=== PATIENT | female | born 1980 | race Caucasian/White ===

== ENCOUNTER 2017-09-04 14:48 | Emergency (ER) | payer BC, OTHER ==
[2017-09-04 15:09] VITALS: BP 127/38; PULSE 100; TEMP 98; BMI 29.2
--- NOTE | 2017-09-04 15:11 | PDOC ---
Rapid Medical Evaluation Time Seen by Provider: 09/04/17 15:05 Medical Evaluation: Allergies Allergy/AdvReac Type Severity Reaction Status Date / Time Penicillins Allergy Severe anaphylaxis Verified 09/04/17 15:05 Sulfa (Sulfonamide Allergy Severe anaphylaxis Verified 09/04/17 15:05 Antibiotics) vancomycin AdvReac Mild Itching Verified 09/04/17 15:05 09/04/17 15:05I have performed a brief in-person evaluation of this patient. The patient presents with a chief complaint of: shoulder pain, after heavy lifting and moving furniture - felt pop/ snap, some relief with ibuprofen Pertinent physical exam findings:tenderpain, mild swelling to shoulder. I have ordered the following: ( tubal ligation) right shoulder xray The patient will proceed to the ED for further evaluation. 09/04/17 15:09
[2017-09-04] MEDS ORDERED: KETOROLAC TROMETHAMINE 60 MG/2 ML VIAL IM ONE (15:25)
[2017-09-04] MEDS ORDERED: RANITIDINE HCL 150 MG TABLET (FP) PO ONE (15:25)
[2017-09-04] MEDS ORDERED: RANITIDINE HCL 150 MG TABLET (FP) ONE (15:30)
[2017-09-04] MEDS ORDERED: KETOROLAC TROMETHAMINE 60 MG/2 ML VIAL ONE (15:30)
--- NOTE | 2017-09-04 15:30 | PDOC ---
History of Present Illness - General Chief Complaint: Injury Stated Complaint: SHOULDER PAIN Time Seen by Provider: 09/04/17 15:05 - History of Present Illness Initial Comments: 37-year-old female without any pre-existing comorbidities presents for evaluation of atraumatic right shoulder pain times one day. She points to the anterior aspect of the right shoulder as the area of her discomfort pain is described as achy exacerbated with motion relieved with rest free of radiation no prior problems with the right shoulder. No associated symptoms. She feels she might of injury her shoulder while she was cleaning. 09/04/17 15:29 Past History - Past Medical History Allergies/Adverse Reactions: Allergies Allergy/AdvReac Type Severity Reaction Status Date / Time Penicillins Allergy Severe anaphylaxis Verified 09/04/17 15:05 Sulfa (Sulfonamide Allergy Severe anaphylaxis Verified 09/04/17 15:05 Antibiotics) vancomycin AdvReac Mild Itching Verified 09/04/17 15:05 Home Medications: Ambulatory Orders NK [No Known Home Medication] 09/04/17 Anemia: No Asthma: No Cancer: No Cardiac Disorders: No CVA: No COPD: No CHF: No Dementia: No Diabetes: No GI Disorders: No Disorders: No HTN: No Hypercholesterolemia: No Liver Disease: No Psychiatric Problems: Yes (ANXIETY, DEPRESSION, BIPOLAR) Seizures: No Thyroid Disease: No - Surgical History Abdominal Surgery: Yes Appendectomy: No Cardiac Surgery: No Cholecystectomy: Yes Lung Surgery: No Neurologic Surgery: No Orthopedic Surgery: No - Immunization History Immunization Up to Date: Yes - Suicide/Smoking/Psychosocial Hx Smoking Status: No Smoking History: Former smoker Have you smoked in the past 12 months: No Number of Cigarettes Smoked Daily: 0 If you are a former smoker, when did you quit?: 2008 Information on smoking cessation initiated: No Hx Alcohol Use: No Drug/Substance Use Hx: No Substance Use Type: None, Prescribed, Tranquilizers Hx Substance Use Treatment: No Review of Systems - Review of Systems Musculoskeletal: Yes: See HPI, Joint Pain All Other Systems: Reviewed and Negative *Physical Exam - Vital Signs Last Vital Signs Temp Pulse Resp BP Pulse Ox 98.0 F 100 H 18 127/38 100 09/04/17 15:06 09/04/17 15:06 09/04/17 15:06 09/04/17 15:06 09/04/17 15:06 - Physical Exam Comments: Right shoulder skin color and temperature within normal limits she resists any passive range of motion she has no palpable effusion. She has diffuse tenderness which seems out of proportion to the examination. She is unable to tolerate impingement maneuvers are rotator cuff strength testing. She has no gross sensorimotor deficits bilateral upper extremity compartments are soft and nontender. She is neurovascularly intact. 09/04/17 15:30 Medical Decision Making - Medical Decision Making Atraumatic right shoulder pain most likely an impingement type syndrome or strain. 09/04/17 15:30 *DC/Admit/Observation/Transfer Diagnosis at time of Disposition: Shoulder strain - Discharge Dispostion Disposition: HOME Condition at time of disposition: Stable Decision to Admit order: No - Referrals Referrals: Rosalina Jackson MD [Primary Care Provider] - Ruben Suarez MD [Staff Physician] - - Patient Instructions Printed Discharge Instructions: Shoulder Sprain Additional Instructions: May take Tylenol and Motrin for your pain follow-up with orthopedics in the next 1-2 days for further evaluation and treatment options. Return to the emergency room if symptoms worsen or go unresolved. Your x-ray today was normal. - Post Discharge Activity
== END 2017-09-04 16:33 | disposition home or self-care (01) ==
LOC: JERFT 14:48
PROC: 3E0233Z Introduction of Anti-inflammatory into Muscle, Percutaneous Approach (ICD-10-PCS; principal; 2017-09-04)
DX: S46.811A Strain of other muscles, fascia and tendons at shoulder and upper arm level, right arm, initial encounter (principal); X50.0XXA Overexertion from strenuous movement or load, initial encounter; Y93.89 Activity, other specified; Y92.89 Other specified places as the place of occurrence of the external cause; Y99.8 Other external cause status
CPT/HCPCS: 73030-TC-RT-FY; 99281-25

== ENCOUNTER 2018-07-06 14:15 | Emergency (ER) | payer BC, OTHER ==
[2018-07-06 14:31] VITALS: BP 122/76; PULSE 106; TEMP 98.6; BMI 29.2
--- NOTE | 2018-07-06 14:42 | PDOC ---
History of Present Illness - General Chief Complaint: Pain, Acute Stated Complaint: PATIENT HERE FOR NECK PAIN OF 9 Time Seen by Provider: 07/06/18 14:39 History Source: Patient Exam Limitations: No Limitations Past History - Travel Traveled outside of the country in the last 30 days: No Close contact w/someone who was outside of country & ill: No - Past Medical History Allergies/Adverse Reactions: Allergies Allergy/AdvReac Type Severity Reaction Status Date / Time Penicillins Allergy Severe anaphylaxis Verified 09/04/17 15:05 Sulfa (Sulfonamide Allergy Severe anaphylaxis Verified 09/04/17 15:05 Antibiotics) vancomycin AdvReac Mild Itching Verified 09/04/17 15:05 Home Medications: Ambulatory Orders Cyclobenzaprine HCl [Flexeril -] 10 mg PO HS #10 tablet 07/06/18 Ketorolac Tromethamine [Toradol] 10 mg PO TID #21 tablet 07/06/18 Lidocaine 5% Patch [Lidoderm -] 1 patch TP DAILY #7 patch 07/06/18 Anemia: No Asthma: No Cancer: No Cardiac Disorders: No CVA: No COPD: No CHF: No Dementia: No Diabetes: No GI Disorders: No Disorders: No HTN: No Hypercholesterolemia: No Liver Disease: No Psychiatric Problems: Yes (ANXIETY, DEPRESSION, BIPOLAR) Seizures: No Thyroid Disease: No - Surgical History Abdominal Surgery: Yes Appendectomy: No Cardiac Surgery: No Cholecystectomy: Yes Lung Surgery: No Neurologic Surgery: No Orthopedic Surgery: No - Immunization History Immunization Up to Date: Yes - Suicide/Smoking/Psychosocial Hx Smoking Status: No Smoking History: Never smoked Have you smoked in the past 12 months: No Number of Cigarettes Smoked Daily: 0 If you are a former smoker, when did you quit?: 2008 Hx Alcohol Use: No Drug/Substance Use Hx: No Substance Use Type: None, Prescribed, Tranquilizers Hx Substance Use Treatment: No Review of Systems - Review of Systems Able to Perform ROS?: Yes Comments:: 07/06/18 14:42 CONSTITUTIONAL: Absent: fever, chills, diaphoresis, generalized weakness, malaise, loss of appetite HEENT: Absent: rhinorrhea, nasal congestion, throat pain, throat swelling, difficulty swallowing, mouth swelling, ear pain, eye pain, visual Changes CARDIOVASCULAR: Absent: chest pain, loss of consciousness, palpitations, irregular heart rate, peripheral edema RESPIRATORY: Absent: cough, shortness of breath, dyspnea with exertion, orthopnea, wheezing, stridor, hemoptysis GASTROINTESTINAL: Absent: abdominal pain, abdominal distension, nausea, vomiting, diarrhea, constipation, melena, hematochezia GENITOURINARY: Absent: dysuria, frequency, urgency, hesitancy, hematuria, flank pain, genital pain MUSCULOSKELETAL: Present: neck pain Absent: joint swelling SKIN: Absent: rash, itching, pallor HEMATOLOGIC/IMMUNOLOGIC: Absent: easy bleeding, easy bruising, lymphadenopathy, frequent infections ENDOCRINE: Absent: unexplained weight gain, unexplained weight loss, heat intolerance, cold intolerance NEUROLOGIC: Absent: headache, focal weakness or paresthesias, dizziness, unsteady gait, seizure, mental status changes, bladder or bowel incontinence PSYCHIATRIC: Absent: anxiety, depression, suicidal or homicidal ideation, hallucinations. Is the patient limited Japanese proficient: No *Physical Exam - Vital Signs Last Vital Signs Temp Pulse Resp BP Pulse Ox 98.6 F 106 H 17 122/76 99 07/06/18 14:22 07/06/18 14:22 07/06/18 14:22 07/06/18 14:22 07/06/18 14:22 - Physical Exam Comments: 07/06/18 14:42 GENERAL: Well developed, well nourished. Awake and alert. No acute distress. HEENT: Normocephalic, atraumatic. PERRLA, EOMI. No conjunctival pallor. Sclera are non- icteric. Moist mucous membranes. Oropharynx is clear. NECK: Supple. Full ROM. No JVD. Carotid pulses 2+ and symmetric, without bruits. No thyromegaly. No lymphadenopathy. CARDIOVASCULAR: Regular rate and rhythm. No murmurs, rubs, or gallops. Distal pulses are 2+ and symmetric. PULMONARY: No evidence of respiratory distress. Lungs clear to auscultation bilaterally. No wheezing, rales or rhonchi. ABDOMINAL: Soft. Non-tender. Non-distended. No rebound or guarding. No organomegaly. Normoactive bowel sounds. MUSCULOSKELETAL Normal range of motion at all joints. No bony deformities or tenderness. No CVA tenderness. EXTREMITIES: No cyanosis. No clubbing. No edema. No calf tenderness. SKIN: Warm and dry. Normal capillary refill. No rashes. No jaundice. NEUROLOGICAL: Alert, awake, appropriate. Cranial nerves 2-12 intact. No deficits to light touch and temperature in face, upper extremities and lower extremities. No motor deficits in the in face, upper extremities and lower extremities. Normoreflexic in the upper and lower extremities. Normal speech. Toes are down- going bilaterally. Gait is normal without ataxia. PSYCHIATRIC: Cooperative. Good eye contact. Appropriate mood and affect. *DC/Admit/Observation/Transfer Diagnosis at time of Disposition: Neck pain - Discharge Dispostion Disposition: HOME Condition at time of disposition: Stable Decision to Admit order: No - Referrals Referrals: Flor Alan MD [Primary Care Provider] - Mahin Radford MD [Staff Physician] - - Patient Instructions Printed Discharge Instructions: DI for Neck Pain Additional Instructions: You have neck pain due to a muscle spasm/hernatied discs. Please take toradol as directed. You were also prescribed Flexeril. Please take this medication every 8 hours for the first day. Then take the medication before you go to bed. Do not drive after taking this medication as it may make you sleepy. You may use warm compresses on your back to help with her symptoms. Please follow-up with your primary care doctor. If your symptoms do not resolve in 3-5 days, follow-up with orthopedics. A referral has been provided for you. Return to the emergency department if you have worsening back pain, bladder or bowel incontinence, numbness and tingling in her legs, changes in the way you walk, or any new or worsening symptoms. You may also cook pickled meat lidocaine 2% patches at the pharmacy over the counter if the 5% patch is not covered by insurance. - Post Discharge Activity Forms/Work/School Notes: Back to Work
[2018-07-06] MEDS ORDERED: LIDOCAINE 5% TOPICAL PATCH TP ONE (15:14)
[2018-07-06] MEDS ORDERED: KETOROLAC TROMETHAMINE 60 MG/2 ML VIAL IM ONE (15:14)
[2018-07-06] MEDS ORDERED: LIDOCAINE 5% TOPICAL PATCH ONE (15:19)
[2018-07-06] MEDS ORDERED: KETOROLAC TROMETHAMINE 60 MG/2 ML VIAL ONE (15:19)
[2018-07-06] MEDS ORDERED: LIDOCAINE PATCH REMOVAL MC SCH (22:00)
== END 2018-07-06 15:40 | disposition home or self-care (01) ==
LOC: JERFT 14:15
PROC: 3E0233Z Introduction of Anti-inflammatory into Muscle, Percutaneous Approach (ICD-10-PCS; principal; 2018-07-06)
DX: M54.2 Cervicalgia (principal)
CPT/HCPCS: 99281-25

== ENCOUNTER 2018-10-26 19:50 | Emergency (ER) | payer BC, OTHER | END 2018-10-26 21:05 | disposition home or self-care (01) | LOC: JERFT 19:50 ==

== ENCOUNTER 2020-12-23 14:06 | Emergency (ER) | payer OTHER, BC ==
[2020-12-23 14:23] VITALS: BP 122/78; PULSE 100; TEMP 98.1; BMI 29.2
[2020-12-23] MEDS ORDERED: KETOROLAC TROMETHAMINE 30 MG/1 ML VIAL IM ONE (14:56)
[2020-12-23] MEDS ORDERED: KETOROLAC TROMETHAMINE 30 MG/1 ML VIAL ONE (14:58)
== END 2020-12-23 15:55 | disposition home or self-care (01) ==
LOC: JERFT 14:06
PROC: 3E0233Z Introduction of Anti-inflammatory into Muscle, Percutaneous Approach (ICD-10-PCS; principal; 2020-12-23)
DX: M25.561 Pain in right knee (principal)
CPT/HCPCS: 73562-TC-RT-FY; 99284-25

== ENCOUNTER 2021-01-06 17:30 | Emergency (ER) | payer OTHER, BC ==
[2021-01-06 17:49] VITALS: BP 125/88; PULSE 78; TEMP 97.8; BMI 29.2
[2021-01-06] MEDS ORDERED: IBUPROFEN 600 MG TABLET (FP) PO ONE ×2 (18:11→18:15)
== END 2021-01-06 18:38 | disposition home or self-care (01) ==
LOC: JERFT 17:30 → JER 17:30 → JERFT 18:38
DX: M79.645 Pain in left finger(s) (principal)
CPT/HCPCS: 73130-TC-LT-FY; 99283-25

== ENCOUNTER 2021-09-03 19:02 | Emergency (ER) | payer BC, OTHER ==
[2021-09-03 19:08] VITALS: BP 134/82; PULSE 111; TEMP 98.8; BMI 29.2
[2021-09-03] MEDS ORDERED: IBUPROFEN 400 MG TABLET (FP) PO ONE ×2 (19:47→20:06)
== END 2021-09-03 20:31 | disposition home or self-care (01) ==
LOC: JER 19:02 → JERFT 19:02
DX: S90.02XA Contusion of left ankle, initial encounter (principal); W23.1XXA Caught, crushed, jammed, or pinched between stationary objects, initial encounter
CPT/HCPCS: 73610-TC-LT-FY; 73630-TC-LT; 99283-25

== ENCOUNTER 2021-09-30 18:00 | Emergency (ER) | payer BC, OTHER ==
[2021-09-30 18:09] VITALS: TEMP 97.5; BMI 28.3
[2021-09-30 20:12] LABS: BASO % 0.9 % (0-2.0); EOS % 3.5 % (0-4.5); HEMATOCRIT 41.6 % (32.4-45.2); HEMOGLOBIN 14.4 GM/dL (10.7-15.3); LYMPH % 18.2 % (8-40); MCH 30.4 pg (25.7-33.7); MCHC 34.5 g/dl (32.0-36.0); MEAN CELL VOLUME 87.9 fl (80-96); MEAN PLT VOLUME 7.3 fl (7.5-11.1); NEUT % 73.4 % (42.8-82.8); PLATELET COUNT 375 10^3/uL (134-434); RBC 4.73 M/mm3 (3.60-5.2); RDW 13.4 % (11.6-15.6)
[2021-09-30 20:45] LABS: ALBUMIN 3.9 g/dl (3.4-5.0); BLOOD UREA NITROGEN 16.7 mg/dL (7-18); CALCIUM 9.1 mg/dL (8.5-10.1)
[2021-09-30 20:48] LABS: CREATININE 0.8 mg/dL (0.55-1.3)
[2021-09-30 20:50] LABS: BILIRUBIN,TOTAL 0.4 mg/dL (0.2-1)
[2021-09-30 23:12] VITALS: BP 137/70; PULSE 99
== END 2021-10-01 00:16 | disposition home or self-care (01) ==
LOC: JER 18:00
DX: R04.2 Hemoptysis (principal)
CPT/HCPCS: 0241U-QW; 36415; 71260-TC; 80053; 84484; 84703; 85025; 99284-25; Q9967

== ENCOUNTER 2021-11-18 16:44 | Emergency (ER) | payer OTHER, BC ==
[2021-11-18 16:52] VITALS: BP 127/86; PULSE 105; RESP 18; TEMP 97.8; BMI 29.2
[2021-11-18] MEDS ORDERED: KETOROLAC TROMETHAMINE 30 MG/1 ML VIAL IM ONE (17:39)
[2021-11-18] MEDS ORDERED: ACETAMINOPHEN 500 MG TABLET (FP) PO ONE (17:44)
[2021-11-18] MEDS ORDERED: ACETAMINOPHEN 500 MG TABLET (FP) ONE (17:45)
== END 2021-11-18 21:08 | disposition home or self-care (01) ==
LOC: JERFT 16:44
PROC: 3E0233Z Introduction of Anti-inflammatory into Muscle, Percutaneous Approach (ICD-10-PCS; principal; 2021-11-18)
DX: G56.22 Lesion of ulnar nerve, left upper limb (principal); S50.02XA Contusion of left elbow, initial encounter
CPT/HCPCS: 73070-TC-LT-FY; 99284-25

== ENCOUNTER 2022-01-08 13:24 | Emergency (ER) | payer BC, OTHER ==
[2022-01-08 13:28] VITALS: BP 117/81; PULSE 113; RESP 18; TEMP 98.2; BMI 30.2
[2022-01-08] MEDS ORDERED: ACETAMINOPHEN 500 MG TABLET (FP) PO ONE (13:52)
[2022-01-08] MEDS ORDERED: ACETAMINOPHEN 500 MG TABLET (FP) ONE (13:54)
== END 2022-01-08 13:59 | disposition home or self-care (01) ==
LOC: JERFT 13:24
PROC: 3E033NZ Introduction of Analgesics, Hypnotics, Sedatives into Peripheral Vein, Percutaneous Approach (ICD-10-PCS; principal; 2022-01-08)
PROC: 3E0337Z Introduction of Electrolytic and Water Balance Substance into Peripheral Vein, Percutaneous Approach (ICD-10-PCS; 2022-01-08)
PROC: 3E033GC Introduction of Other Therapeutic Substance into Peripheral Vein, Percutaneous Approach (ICD-10-PCS; 2022-01-08)
PROC: 3E033GC Introduction of Other Therapeutic Substance into Peripheral Vein, Percutaneous Approach (ICD-10-PCS; 2022-01-08)
PROC: 3E033GC Introduction of Other Therapeutic Substance into Peripheral Vein, Percutaneous Approach (ICD-10-PCS; 2022-01-08)
PROC: 3E0337Z Introduction of Electrolytic and Water Balance Substance into Peripheral Vein, Percutaneous Approach (ICD-10-PCS; 2022-01-08)
DX: S80.12XA Contusion of left lower leg, initial encounter (principal)
CPT/HCPCS: 99284-25; C9803-CS; U0003; U0005

== ENCOUNTER 2022-01-08 19:07 | Emergency (ER) | payer BC, OTHER ==
[2022-01-08 19:16] VITALS: BMI 30.2
[2022-01-08] MEDS ORDERED: ONDANSETRON 4 MG/2 ML VIAL IVPUSH ONE (19:51)
[2022-01-08] MEDS ORDERED: SODIUM CHLORIDE 1,000 ML IV STA ×2 (19:51→23:27)
[2022-01-08] MEDS ORDERED: ONDANSETRON 4 MG/2 ML VIAL ONE (20:04)
[2022-01-08] MEDS ORDERED: METOCLOPRAMIDE HCL INJECTION 10 MG/2 ML VIAL IVPUSH ONE (20:42)
[2022-01-08] MEDS ORDERED: METOCLOPRAMIDE HCL INJECTION 10 MG/2 ML VIAL ONE (20:45)
[2022-01-08 20:48] LABS: BASO % 0.3 % (0-2.0); EOS % 0.4 % (0-4.5); LYMPH % 2.1 % (8-40); MCHC 34.1 g/dl (32.0-36.0); MEAN PLT VOLUME 7.9 fl (7.5-11.1); MONO % 5.3 % (3.8-10.2); NEUT % 91.9 % (42.8-82.8); PLATELET COUNT 210 10^3/uL (134-434); RBC 4.32 M/mm3 (3.60-5.2); RDW 13.3 % (11.6-15.6); WHITE BLOOD COUNT 8.4 K/mm3 (4.0-10.0)
[2022-01-08 21:05] LABS: CHLORIDE 106 mmol/L (98-107); SODIUM 139 mmol/L (136-145)
[2022-01-08 21:06] LABS: ALBUMIN 3.5 g/dl (3.4-5.0); ANION GAP 12 MMOL/L (8-16); BLOOD UREA NITROGEN 14.1 mg/dL (7-18); CALCIUM 8.8 mg/dL (8.5-10.1); CO2 21 mmol/L (21-32); GLUCOSE,RANDOM 99 mg/dL (74-106)
[2022-01-08 21:09] LABS: CREATININE 0.8 mg/dL (0.55-1.3); SGOT/AST 108 U/L (15-37); SGPT/ALT 107 U/L (13-61)
[2022-01-08 21:11] LABS: BILIRUBIN,TOTAL 0.6 mg/dL (0.2-1); LDH 278 U/L (84-246); TOT PROT 6.9 g/dl (6.4-8.2)
[2022-01-08 21:12] LABS: ALK PHOS 82 U/L (45-117)
[2022-01-08] MEDS ORDERED: ACETAMINOPHEN 1000 MG/100 ML BAG IVPB ONE (21:13)
[2022-01-08 21:23] LABS: LIPASE 102 U/L (73-393)
[2022-01-08] MEDS ORDERED: MAGNESIUM SULF 50% (8.12 MEQ/2 ML-1 GM VIAL) IVPB ONE (21:27)
[2022-01-08] MEDS ORDERED: POTASSIUM CHLORIDE TABS 20 MEQ TABLET.ER (FP) PO ONE ×2 (21:28→22:20)
[2022-01-08 21:40] LABS: ANISOCYTOSIS 1+; MACROCYTOSIS 0
[2022-01-08] MEDS ORDERED: ACETAMINOPHEN INJECTION 100 ML IVPB ONE (22:20)
[2022-01-08] MEDS ORDERED: MAGNESIUM SULFATE IN WATER 2 GM/50 ML IVPB IVPB ONE (22:20)
[2022-01-08 22:42] LABS: PH,URINE 7.5 (5.0-8.0); URINE APPEARANCE CLEAR; URINE BILIRUBIN NEGATIVE (NEGATIVE); URINE COLOR YELLOW; URINE GLUCOSE (UA) NEGATIVE (NEGATIVE); URINE KETONE NEGATIVE (NEGATIVE); URINE LEUK ESTERASE NEGATIVE (NEGATIVE); URINE NITRITE NEGATIVE (NEGATIVE); URINE PROTEIN NEGATIVE (NEGATIVE)
[2022-01-08 22:45] LABS: HCG,QUALITATIVE URINE Negative
[2022-01-08] MEDS ORDERED: LORazepam 1 MG TABLET PO ONE (23:32)
[2022-01-08] MEDS ORDERED: LORazepam 1 MG TABLET ONE (23:43)
[2022-01-09 01:08] VITALS: BP 112/73; PULSE 127; RESP 20; TEMP 99.3
== END 2022-01-09 01:09 | disposition home or self-care (01) ==
LOC: JER 19:07
DX: U07.1 COVID-19 (principal); R00.0 Tachycardia, unspecified
CPT/HCPCS: 36415; 71275-TC; 80053; 81003; 83615; 83690; 84484; 84703; 85025; 85379; 87086; 87186; 93005; 93010; 99285-25; Q9967

== ENCOUNTER 2022-04-14 13:18 | Emergency (ER) | payer BC, OTHER ==
[2022-04-14 13:24] VITALS: BP 135/83; PULSE 119; RESP 20; TEMP 98.4; BMI 30.2
[2022-04-14] MEDS ORDERED: ACETAMINOPHEN 500 MG TABLET (FP) PO ONE (13:25)
[2022-04-14] MEDS ORDERED: IBUPROFEN 400 MG TABLET (FP) PO ONE ×2 (13:33→13:48)
[2022-04-14] MEDS ORDERED: ACETAMINOPHEN 500 MG TABLET (FP) ONE (13:48)
== END 2022-04-14 14:56 | disposition home or self-care (01) ==
LOC: JERFT 13:18
DX: M25.511 Pain in right shoulder (principal)
CPT/HCPCS: 71046-TC-FY; 73000-TC-RT-FY; 73030-TC-RT-FY; 99284-25

== ENCOUNTER 2022-06-13 14:32 | Emergency (ER) | payer BC, OTHER ==
[2022-06-13 14:39] VITALS: BP 131/81; PULSE 98; RESP 18; TEMP 97.9; BMI 29.2
[2022-06-13] MEDS ORDERED: ACETAMINOPHEN 500 MG TABLET (FP) PO ONE (15:56)
[2022-06-13] MEDS ORDERED: ACETAMINOPHEN 500 MG TABLET (FP) ONE (16:04)
== END 2022-06-13 17:07 | disposition home or self-care (01) ==
LOC: JERFT 14:32
DX: M79.601 Pain in right arm (principal); W20.8XXA Other cause of strike by thrown, projected or falling object, initial encounter; Y93.D3 Activity, furniture building and finishing
CPT/HCPCS: 73090-TC-RT-FY; 73110-TC-RT-FY; 99283-25

== ENCOUNTER 2022-07-30 12:49 | Emergency (ER) | payer BC, OTHER ==
[2022-07-30 12:53] VITALS: BP 137/82; PULSE 101; RESP 18; TEMP 98.3; BMI 30.2
[2022-07-30] MEDS ORDERED: NAPROXEN 500 MG TABLET PO ONE (13:30)
[2022-07-30] MEDS ORDERED: NAPROXEN 500 MG TABLET ONE (13:32)
== END 2022-07-30 14:23 | disposition home or self-care (01) ==
LOC: JERFT 12:49 → JER 12:49 → JERFT 14:23
DX: M54.50 Low back pain, unspecified (principal); M25.551 Pain in right hip; W10.8XXA Fall (on) (from) other stairs and steps, initial encounter
CPT/HCPCS: 72110-TC-FY; 73502-TC-RT-FY; 99283-25

== ENCOUNTER 2022-10-14 14:40 | Emergency (ER) | payer BC, OTHER ==
[2022-10-14 14:52] VITALS: BP 146/78; PULSE 89; RESP 18; TEMP 98.4; BMI 30.2
[2022-10-14] MEDS ORDERED: IBUPROFEN 600 MG TABLET (FP) PO ONE ×2 (15:27→15:49)
[2022-10-14] MEDS ORDERED: ACETAMINOPHEN 325 MG TABLET (FP) PO ONE (15:27)
[2022-10-14] MEDS ORDERED: ACETAMINOPHEN 325 MG TABLET (FP) ONE (15:48)
== END 2022-10-14 17:54 | disposition home or self-care (01) ==
LOC: JERFT 14:40
DX: S93.401A Sprain of unspecified ligament of right ankle, initial encounter (principal); M25.571 Pain in right ankle and joints of right foot; W18.49XA Other slipping, tripping and stumbling without falling, initial encounter; Y93.01 Activity, walking, marching and hiking; Y92.009 Unspecified place in unspecified non-institutional (private) residence as the place of occurrence of the external cause
CPT/HCPCS: 73610-TC-RT-FY; 99283-25

== ENCOUNTER 2022-11-08 12:26 | Emergency (ER) | payer OTHER, BC ==
[2022-11-08 12:54] VITALS: BP 132/87; PULSE 94; RESP 18; TEMP 98.3; BMI 30.2
[2022-11-08] MEDS ORDERED: ACETAMINOPHEN 500 MG TABLET (FP) PO ONE (13:24)
[2022-11-08] MEDS ORDERED: IBUPROFEN 600 MG TABLET (FP) PO ONE ×2 (13:25)
[2022-11-08] MEDS ORDERED: ACETAMINOPHEN 500 MG TABLET (FP) ONE (13:26)
== END 2022-11-08 14:57 | disposition home or self-care (01) ==
LOC: JERFT 12:26
DX: M25.572 Pain in left ankle and joints of left foot (principal); M79.672 Pain in left foot; W01.0XXA Fall on same level from slipping, tripping and stumbling without subsequent striking against object, initial encounter
CPT/HCPCS: 73610-TC-LT-FY; 73630-TC-LT; 99283-25

== ENCOUNTER 2022-12-05 17:34 | Emergency (ER) | payer BC, OTHER ==
[2022-12-05 17:48] VITALS: BP 129/91; PULSE 118; RESP 20; TEMP 98.2; BMI 29.2
== END 2022-12-05 19:09 | disposition left against medical advice (07) ==
LOC: JERFT 17:34
DX: Z04.3 Encounter for examination and observation following other accident (principal)
CPT/HCPCS: 99281-25

== ENCOUNTER 2023-05-31 12:50 | Emergency (ER) | payer OTHER, BC ==
[2023-05-31 13:02] VITALS: BP 117/82; PULSE 104; RESP 18; TEMP 99; BMI 30.2
[2023-05-31] MEDS ORDERED: IBUPROFEN 600 MG TABLET (FP) PO ONE (14:51)
[2023-05-31] MEDS ORDERED: ACETAMINOPHEN 500 MG TABLET (FP) ONE (14:51)
[2023-05-31] MEDS: IBUPROFEN 600 MG TABLET (FP) PO ONE (14:53)
[2023-05-31] MEDS: ACETAMINOPHEN 500 MG TABLET (FP) PO ONE (14:54)
== END 2023-05-31 16:34 | disposition home or self-care (01) ==
LOC: JERFT 12:50
DX: M25.531 Pain in right wrist (principal); S66.911A Strain of unspecified muscle, fascia and tendon at wrist and hand level, right hand, initial encounter; W22.8XXA Striking against or struck by other objects, initial encounter
CPT/HCPCS: 73110-TC-RT-FY; 99283-25

== ENCOUNTER 2023-12-05 10:49 | Emergency (ER) | payer BC, OTHER ==
[2023-12-05 11:45] VITALS: BP 116/79; PULSE 97; RESP 16; TEMP 98.5; BMI 30.2
[2023-12-05] MEDS ORDERED: IBUPROFEN 600 MG TABLET (FP) PO ONE (12:48)
[2023-12-05] MEDS: IBUPROFEN 600 MG TABLET (FP) PO ONE (12:51)
== END 2023-12-05 14:05 | disposition home or self-care (01) ==
LOC: JERFT 10:49
DX: S96.911A Strain of unspecified muscle and tendon at ankle and foot level, right foot, initial encounter (principal); W51.XXXA Accidental striking against or bumped into by another person, initial encounter
CPT/HCPCS: 73610-TC-RT-FY; 99283-25

== ENCOUNTER 2024-01-16 03:49 | Day surgery (SDC) | payer BC, OTHER ==
[2024-01-11 10:47] VITALS: BMI 31.1
[2024-01-16] MEDS ORDERED: LIDOCAINE HCL 1%, 10 MG/ML (20ML VIAL) ONE ×2 (10:35→12:08)
[2024-01-16] MEDS ORDERED: DEXAMETHASONE SOD PHOSPHATE 4 MG/1 ML VIAL ONE (10:40)
[2024-01-16] MEDS ORDERED: ONDANSETRON 4 MG/2 ML VIAL ONE (10:40)
[2024-01-16] MEDS ORDERED: LIDOCAINE HCL/PF 2% SDV 5ML VIAL ONE (10:40)
[2024-01-16] MEDS ORDERED: ceFAZolin SODIUM 1 GM VIAL ONE (10:40)
[2024-01-16] MEDS ORDERED: PROPOFOL 20 ML ONE (10:44)
[2024-01-16] MEDS ORDERED: LIDOCAINE 1%/EPI 1:100000 (20 ML MULTI DOSE VIAL) ONE (12:08)
[2024-01-16] MEDS ORDERED: MIDAZOLAM HCL 2 MG/2 ML SINGLE DOSE VIAL ONE (12:11)
[2024-01-16] MEDS ORDERED: BENZOIN/ALOE VERA/STORAX/TOLU 58 ML BOTTLE ONE (12:42)
[2024-01-16] MEDS ORDERED: ONDANSETRON 4 MG/2 ML VIAL IVPUSH PRN (13:10)
[2024-01-16] MEDS ORDERED: LACTATED RINGERS SOLUTION 1,000 ML IV SCH (13:15)
[2024-01-16 13:59] VITALS: TEMP 97.3
[2024-01-16] MEDS: oxyCODONE HCL 5 MG TABLET PO PRN (14:12)
[2024-01-16 14:38] VITALS: BP 125/96; PULSE 102; RESP 20
== END 2024-01-16 15:00 | disposition home or self-care (01) ==
LOC: JASU-SURG 03:49
PROVIDERS: ATTEND Surgery Surgical Oncology
PROC: 0HBU0ZX Excision of Left Breast, Open Approach, Diagnostic (ICD-10-PCS; principal; 2024-01-16 12:30)
DX: D24.1 Benign neoplasm of right breast (principal)
CPT/HCPCS: 81025; 88307-TC; 94760